=== PATIENT | male | born 1955 | race Hispanic/Latino ===

== ENCOUNTER 2022-06-30 16:48 | Emergency (ER) | payer MEDICARE, OTHER ==
[~2022-06-30] VITALS: Ht 157.5 cm; Wt 65.8 kg
[2022-06-30 16:59] VITALS: BP 170/103
[2022-06-30] MEDS ORDERED: BENZ200C53 PO (17:53)
[2022-06-30] MEDS ORDERED: NIRM1TAB PO (17:53)
== END 2022-06-30 18:09 | disposition home or self-care (01) ==
LOC: EDH 16:48
DX: U07.1 COVID-19 (principal); B34.9 Viral infection, unspecified; E78.00 Pure hypercholesterolemia, unspecified; Z98.890 Other specified postprocedural states
CPT/HCPCS: 99283; 87635; 87880; 87804 ×2; C9803